=== PATIENT | female | born 1940 | race Caucasian/White ===

== ENCOUNTER 2018-05-23 06:59 | Emergency (ER) | payer MEDICARE, OTHER, SELFPAY ==
[2018-05-23 07:24] VITALS: BP 154/69; PULSE 88; RESP 13; TEMP 36.8; O2SAT 99
--- NOTE | 2018-05-23 08:17 | PC.NURSE ---
done by professional nursing tutor stevie gutierrez rn instructor stand by
--- NOTE | 2018-05-23 08:19 | ED.ABDPAIN ---
HPI - Abdominal Pain General Chief Complaint: Abdominal Pain Stated Complaint: STOMACH MAKING NOISES Time Seen by Provider: 05/23/18 08:06 Source: patient and family (daughter) Mode of arrival: ambulatory Limitations: no limitations History of Present Illness HPI narrative: This is a 77-year-old female who comes to the emergency department with complaint of intermittent abdominal pain. Patient states typically lower in the abdomen. Um it seems to come and go. About 2 weeks ago she was having lot issues with constipation. She was seen at urgent care and given MiraLax which she has been taking twice daily. She is no longer constipated and has been having regular bowel movements although they have been somewhat loose and she states they see maybe a little too loose. She has not had any black or bloody stools. She has not had any fevers. No nausea, no vomiting. She states that sometimes sort of a crampy feeling. This morning she was having discomfort about 5:00 a.m.. She also states she is having a lot of gurgling sounds. Related Data Home Medications Medication Instructions Recorded Confirmed cyclosporine [Restasis] 1 drp OPHTHALMIC (EYE) BID 05/23/18 05/23/18 dicyclomine 10 mg PO BID 05/23/18 05/23/18 diltiazem HCl [Cartia XT] 120 mg PO BID 05/23/18 05/23/18 hydrocortisone [Proctozone-HC] 1 applic TOPICAL 1-2XD PRN 05/23/18 05/23/18 losartan 25 mg PO DAILY 05/23/18 05/23/18 metoprolol tartrate 50 mg PO BID 05/23/18 05/23/18 omeprazole 20 mg PO Q OTHER DAY 05/23/18 05/23/18 polyethylene glycol 3350 17 g PO DIRECTED 05/23/18 05/23/18 triamterene-hydrochlorothiazid 1 cap PO QAM 05/23/18 05/23/18 Allergies Allergy/AdvReac Type Severity Reaction Status Date / Time From ENTEX LQ Allergy Unknown Uncoded 10/26/17 12:31 From SUDAFED 12 HOUR Allergy Unknown Uncoded 10/26/17 12:31 IODINE Allergy Unknown Uncoded 10/26/17 12:31 Review of Systems Review of Systems All systems reviewed & are unremarkable except as noted in HPI and below Constitutional Denies chills, Denies fever(s) and Denies malaise Cardiovascular Denies chest pain, Denies irregular heart rhythm, Denies lightheadedness, Denies palpitations, Denies dyspnea, Denies dyspnea on exertion and Denies orthopnea Respiratory Denies cough, Denies dyspnea, Denies dyspnea on exertion and Denies wheezing Gastrointestinal Gastrointestinal: Reports abdominal pain, Denies belching, Denies melena, Denies hematochezia, Denies change in bowel habits, Reports constipation (improved with meds), Denies fecal incontinence, Reports loose stools, Denies nausea and Denies vomiting Genitourinary Denies hematuria, Denies flank pain, Reports urinary incontinence (chronic no new change) and Denies urinary urgency Musculoskeletal Denies back pain Endocrine Denies palpitations Allergic/Immunologic Denies wheezing [facility] Medical History Coronary artery disease (Acute) Dyslipidemia (Acute) SVT (supraventricular tachycardia) (Acute) Surgical History History of (Acute) Exam Narrative Exam Narrative: GENERAL: Alert and oriented x three, well-nourished, well-appearing female in no acute distress. HEENT: Head normocephalic, atraumatic, EOMI, pupils reactive, face symmetric, moist mucous membranes NECK: Supple, full range of motion CARDIOVASCULAR: Regular rate and rhythm without murmurs, rubs or gallops. RESPIRATORY: Breath sounds equal bilaterally, no wheezes rales or rhonchi. ABDOMEN: Soft, very mild suprapubic tenderness. Normoactive bowel sounds all 4 quadrants. No guarding or rebound, rigidity, no mass : No CVA tenderness EXTREMITIES: Normal range of motion, no clubbing or edema. Neurovascularly intact NEUROLOGICAL: Cranial nerves II through XII grossly intact. Moving all extremities SKIN: Warm, dry, no petechiae, no rashes or lesions. Initial Vital Signs Initial Vital Signs: Vital Signs Temperature 98.2 F 05/23/18 07:24 Pulse Rate 88 05/23/18 07:24 Respiratory Rate 13 05/23/18 07:24 Blood Pressure 154/69 H 05/23/18 07:24 Pulse Oximetry 99 05/23/18 07:24 Course Orders Ordered: ED Orders 05/23/18 08:05 Complete Blood Count AUTO DIFF Stat Comprehensive Metabolic Panel Stat Lipase Stat 05/23/18 08:19 XR abdomen min 2V Stat Vital Signs - 8 hr 05/23/18 07:24 Temperature 98.2 F Pulse Rate 88 Respiratory Rate 13 Blood Pressure 154/69 H Pulse Oximetry 99 MDM - Abdominal Pain Lab Data Attestation: I reviewed the patient's lab results. Result diagrams: 05/23/18 08:05 05/23/18 08:05 Lab Results 05/23/18 05/23/18 Range/Units 08:05 08:05 WBC 5.1 (4.5-11.0) X10^3/uL RBC 4.18 (4.0-5.2) X10^6/uL Hgb 12.9 (12.0-16.0) g/dL Hct 37.8 (36-46) % MCV 90.4 (80-100) fL MCH 31.0 (26-34) PG MCHC 34.3 (30-36) % RDW 13.8 (11.6-14.8) % Plt Count 250 (150-400) X10^3/uL Neut % (Auto) 64.7 (50-75) % Lymph % (Auto) 23.1 L (25-40) % Wilcox % (Auto) 9.0 (3-14) % Eos % (Auto) 2.3 (2-4) % Baso % (Auto) 0.9 (0-2) % Neut # (Auto) 3300 (6010-5252) /uL Sodium 143 (137-145) mmol/L Potassium 3.8 (3.4-5.1) mmol/L Chloride 103 (98-107) mmol/L Carbon Dioxide 26 (22-32) mmol/L BUN 23 H (7-17) mg/dL Creatinine 0.70 (0.52-1.04) mg/dL Estimated GFR > 60.0 (>60) mL/min BUN/Creatinine Ratio 32.9 H (6-22) Glucose 125 H (80-110) mg/dL Calcium 10.7 H (8.4-10.2) mg/dL Total Bilirubin 0.5 (0.2-1.3) mg/dL AST 28 (14-36) IU/L ALT 13 (9-52) IU/L Alkaline Phosphatase 94 (38-126) U/L Total Protein 8.1 (6.3-8.2) g/dL Albumin 4.6 (3.5-5.0) g/dL Globulin 3.5 (1.7-4.1) g/dL Albumin/Globulin Ratio 1.3 (1.0-2.8) Lipase 62 (23-300) U/L Point of care testing: Urine Dip Bedside Urine Glucose Negative Bedside Urine Bilirubin - Negative Bedside Urine Ketone - Negative Urine Specific [place] 1.020 Bedside Urine Occult Blood - Negative Bedside Urine pH 6.5 Bedside Urine Protein - Negative Bedside Urine Urobilinogen - Negative Bedside Urine Nitrite - Negative Bedside Urine Leukocytes - Negative Esterase Imaging Data Abdominal x-ray: Radiologist's impression: [address] [address] XRay Report Signed Patient: Staci Mchugh PMR#: [id number] : 1941Acct:[id number] Age/Sex: 77 / FDate of Service: 05/23/18 Loc: ED Accession Number: [id number] Procedure: XR abdomen min 2V Ordering Provider: Batool Whitney D.O. PROCEDURE: XR ABDOMEN MIN 2V INDICATIONS: intermittent abd pain, on stool softeners, gurgling TECHNIQUE: 2 views of the abdomen were acquired. COMPARISON: None. FINDINGS: Surgical changes and devices: None. Bowel: No pneumoperitoneum. The bowel gas pattern is normal. Mild to moderate scattered stool. Soft tissues: No masses; visualized solid organ contours appear normal in size. No suspicious abdominal calcifications. Areas of calcification are noted within the left the lower pelvis. Bones: No suspicious bony abnormalities. IMPRESSION: 1. Bezh-em-fxvcayat stool. 2. Lower pelvic calcifications as above. They are indeterminate on this examination. They could represent large phleboliths, uterine fibroid and other etiologies cannot be excluded. No priors are available for comparison. Dictated by: Alexa Mckay M.D. on 05/23/2018 at 8:58 Approved by: Alexa Mckay M.D. on 05/23/2018 at 9:00 [facility] Narrative Medical decision making narrative: Patient is very mild tenderness to palpation in the suprapubic region. She is less descriptive her abdominal pain and her daughter. She was more concerned about the gurgling in her stomach. We discussed that her lab work does not show an elevated white count, there is no other major abnormalities. X-ray did show some calcifications that could be phleboliths versus fibroids or other calcified lesions in her abdomen. Urine does not show any signs of infection. We discussed having her follow up with her primary care physician for evaluation. Her daughter asked about prescribing her anxiety medications which I recommended she should get from her primary care physician. Discharge Plan Departure Patient Disposition: Home Clinical Impression: Abdominal pain Discharge Date/Time: 05/23/18 10:36 Interventions: ED Discharge Assessment Last Done: 05/23/18 10:35 Instructions: DI for Abdominal Pain-Adult Activity Restrictions/Additional Instructions: Follow-up with her primary care physician in the next 3-5 days for recheck. Call for an appointment today. Return to the emergency department for fevers, persistent vomiting, rapidly increasing abdominal pain, black or bloody stools, passing out, chest pain or shortness of breath or other new or concerning symptoms. Decrease your stool softener to once daily. Prescriptions: No Action triamterene-hydrochlorothiazid 37.5-25 mg capsule 1 cap PO QAM RF: 0 hydrocortisone [Proctozone-HC] 2.5 % cream with perineal applicator 1 applic Topical 1-2XD PRN (Reason: Hemorrhoids) RF: 0 losartan 25 mg tablet 25 mg PO DAILY RF: 0 metoprolol tartrate 50 mg tablet 50 mg PO BID RF: 0 omeprazole 20 mg capsule,delayed release(DR/EC) 20 mg PO Q OTHER DAY RF: 0 diltiazem HCl [Cartia XT] 120 mg capsule,extended release 24hr 120 mg PO BID RF: 0 polyethylene glycol 3350 17 gram/dose powder 17 g PO DIRECTED RF: 0 dicyclomine 10 mg capsule 10 mg PO BID RF: 0 cyclosporine [Restasis] 0.05 % dropperette 1 drp ophthalmic (eye) BID RF: 0
--- NOTE | 2018-05-23 08:22 | ED_ITS ---
HPI - Abdominal Pain General Chief Complaint: Abdominal Pain Stated Complaint: STOMACH MAKING NOISES Time Seen by Provider: 05/23/18 08:06 Source: patient and family (daughter) Mode of arrival: ambulatory Limitations: no limitations History of Present Illness HPI narrative: This is a 77-year-old female who comes to the emergency department with complaint of intermittent abdominal pain. Patient states typically lower in the abdomen. Um it seems to come and go. About 2 weeks ago she was having lot issues with constipation. She was seen at urgent care and given MiraLax which she has been taking twice daily. She is no longer constipated and has been having regular bowel movements although they have been somewhat loose and she states they see maybe a little too loose. She has not had any black or bloody stools. She has not had any fevers. No nausea, no vomiting. She states that sometimes sort of a crampy feeling. This morning she was having discomfort about 5:00 a.m.. She also states she is having a lot of gurgling sounds. Related Data Home Medications Medication Instructions Recorded Confirmed cyclosporine [Restasis] 1 drp OPHTHALMIC (EYE) BID 05/23/18 05/23/18 dicyclomine 10 mg PO BID 05/23/18 05/23/18 diltiazem HCl [Cartia XT] 120 mg PO BID 05/23/18 05/23/18 hydrocortisone [Proctozone-HC] 1 applic TOPICAL 1-2XD PRN 05/23/18 05/23/18 losartan 25 mg PO DAILY 05/23/18 05/23/18 metoprolol tartrate 50 mg PO BID 05/23/18 05/23/18 omeprazole 20 mg PO Q OTHER DAY 05/23/18 05/23/18 polyethylene glycol 3350 17 g PO DIRECTED 05/23/18 05/23/18 triamterene-hydrochlorothiazid 1 cap PO QAM 05/23/18 05/23/18 Allergies Allergy/AdvReac Type Severity Reaction Status Date / Time From ENTEX LQ Allergy Unknown Uncoded 10/26/17 12:31 From SUDAFED 12 HOUR Allergy Unknown Uncoded 10/26/17 12:31 IODINE Allergy Unknown Uncoded 10/26/17 12:31 Review of Systems Review of Systems All systems reviewed & are unremarkable except as noted in HPI and below Constitutional Denies chills, Denies fever(s) and Denies malaise Cardiovascular Denies chest pain, Denies irregular heart rhythm, Denies lightheadedness, Denies palpitations, Denies dyspnea, Denies dyspnea on exertion and Denies orthopnea Respiratory Denies cough, Denies dyspnea, Denies dyspnea on exertion and Denies wheezing Gastrointestinal Gastrointestinal: Reports abdominal pain, Denies belching, Denies melena, Denies hematochezia, Denies change in bowel habits, Reports constipation ( improved with meds), Denies fecal incontinence, Reports loose stools, Denies nausea and Denies vomiting Genitourinary Denies hematuria, Denies flank pain, Reports urinary incontinence (chronic no new change) and Denies urinary urgency Musculoskeletal Denies back pain Endocrine Denies palpitations Allergic/Immunologic Denies wheezing [facility] Medical History Coronary artery disease (Acute) Dyslipidemia (Acute) SVT (supraventricular tachycardia) (Acute) Surgical History History of (Acute) Exam Narrative Exam Narrative: GENERAL: Alert and oriented x three, well-nourished, well- appearing female in no acute distress. HEENT: Head normocephalic, atraumatic, EOMI, pupils reactive, face symmetric, moist mucous membranes NECK: Supple, full range of motion CARDIOVASCULAR: Regular rate and rhythm without murmurs, rubs or gallops. RESPIRATORY: Breath sounds equal bilaterally, no wheezes rales or rhonchi. ABDOMEN: Soft, very mild suprapubic tenderness. Normoactive bowel sounds all 4 quadrants. No guarding or rebound, rigidity, no mass : No CVA tenderness EXTREMITIES: Normal range of motion, no clubbing or edema. Neurovascularly intact NEUROLOGICAL: Cranial nerves II through XII grossly intact. Moving all extremities SKIN: Warm, dry, no petechiae, no rashes or lesions. Initial Vital Signs Initial Vital Signs: Vital Signs Temperature 98.2 F 05/23/18 07:24 Pulse Rate 88 05/23/18 07:24 Respiratory Rate 13 05/23/18 07:24 Blood Pressure 154/69 H 05/23/18 07:24 Pulse Oximetry 99 05/23/18 07:24 Course Orders Ordered: ED Orders 05/23/18 08:05 Complete Blood Count AUTO DIFF Stat Comprehensive Metabolic Panel Stat Lipase Stat 05/23/18 08:19 XR abdomen min 2V Stat Vital Signs - 8 hr 05/23/18 07:24 Temperature 98.2 F Pulse Rate 88 Respiratory Rate 13 Blood Pressure 154/69 H Pulse Oximetry 99 MDM - Abdominal Pain Lab Data Attestation: I reviewed the patient's lab results. Result diagrams: 05/23/18 08:05 05/23/18 08:05 Lab Results 05/23/18 05/23/18 Range/Units 08:05 08:05 WBC 5.1 (4.5-11.0) X10^3/uL RBC 4.18 (4.0-5.2) X10^6/uL Hgb 12.9 (12.0-16.0) g/dL Hct 37.8 (36-46) % MCV 90.4 (80-100) fL MCH 31.0 (26-34) PG MCHC 34.3 (30-36) % RDW 13.8 (11.6-14.8) % Plt Count 250 (150-400) X10^3/uL Neut % (Auto) 64.7 (50-75) % Lymph % (Auto) 23.1 L (25-40) % Rich % (Auto) 9.0 (3-14) % Eos % (Auto) 2.3 (2-4) % Baso % (Auto) 0.9 (0-2) % Neut # (Auto) 3300 (7675-3678) /uL Sodium 143 (137-145) mmol/L Potassium 3.8 (3.4-5.1) mmol/L Chloride 103 (98-107) mmol/L Carbon Dioxide 26 (22-32) mmol/L BUN 23 H (7-17) mg/dL Creatinine 0.70 (0.52-1.04) mg/dL Estimated GFR > 60.0 (>60) mL/min BUN/Creatinine Ratio 32.9 H (6-22) Glucose 125 H (80-110) mg/dL Calcium 10.7 H (8.4-10.2) mg/dL Total Bilirubin 0.5 (0.2-1.3) mg/dL AST 28 (14-36) IU/L ALT 13 (9-52) IU/L Alkaline Phosphatase 94 (38-126) U/L Total Protein 8.1 (6.3-8.2) g/dL Albumin 4.6 (3.5-5.0) g/dL Globulin 3.5 (1.7-4.1) g/dL Albumin/Globulin Ratio 1.3 (1.0-2.8) Lipase 62 (23-300) U/L Point of care testing: Urine Dip Bedside Urine Glucose Negative Bedside Urine Bilirubin - Negative Bedside Urine Ketone - Negative Urine Specific [place] 1.020 Bedside Urine Occult Blood - Negative Bedside Urine pH 6.5 Bedside Urine Protein - Negative Bedside Urine Urobilinogen - Negative Bedside Urine Nitrite - Negative Bedside Urine Leukocytes - Negative Esterase Imaging Data Abdominal x-ray: Radiologist's impression: [address] [address] XRay Report Signed Patient: Staci Mchugh PMR#: [id number] : 1941Acct:[id number] Age/Sex: 77 / FDate of Service: 05/23/18 Loc: ED Accession Number: [id number] Procedure: XR abdomen min 2V Ordering Provider: Batool Whitney D.O. PROCEDURE: XR ABDOMEN MIN 2V INDICATIONS: intermittent abd pain, on stool softeners, gurgling TECHNIQUE: 2 views of the abdomen were acquired. COMPARISON: None. FINDINGS: Surgical changes and devices: None. Bowel: No pneumoperitoneum. The bowel gas pattern is normal. Mild to moderate scattered stool. Soft tissues: No masses; visualized solid organ contours appear normal in size. No suspicious abdominal calcifications. Areas of calcification are noted within the left the lower pelvis. Bones: No suspicious bony abnormalities. IMPRESSION: 1. Gftk-mq-mqkcuzwi stool. 2. Lower pelvic calcifications as above. They are indeterminate on this examination. They could represent large phleboliths, uterine fibroid and other etiologies cannot be excluded. No priors are available for comparison. Dictated by: Alexa Mckya M.D. on 05/23/2018 at 8:58 Approved by: Alexa Mckay M.D. on 05/23/2018 at 9:00 [facility] Narrative Medical decision making narrative: Patient is very mild tenderness to palpation in the suprapubic region. She is less descriptive her abdominal pain and her daughter. She was more concerned about the gurgling in her stomach. We discussed that her lab work does not show an elevated white count, there is no other major abnormalities. X-ray did show some calcifications that could be phleboliths versus fibroids or other calcified lesions in her abdomen. Urine does not show any signs of infection. We discussed having her follow up with her primary care physician for evaluation. Her daughter asked about prescribing her anxiety medications which I recommended she should get from her primary care physician. Discharge Plan Departure Patient Disposition: Home Clinical Impression: Abdominal pain Discharge Date/Time: 05/23/18 10:36 Interventions: ED Discharge Assessment Last Done: 05/23/18 10:35 Instructions: DI for Abdominal Pain-Adult Activity Restrictions/Additional Instructions: Follow-up with her primary care physician in the next 3-5 days for recheck. Call for an appointment today. Return to the emergency department for fevers, persistent vomiting, rapidly increasing abdominal pain, black or bloody stools, passing out, chest pain or shortness of breath or other new or concerning symptoms. Decrease your stool softener to once daily. Prescriptions: No Action triamterene-hydrochlorothiazid 37.5-25 mg capsule 1 cap PO QAM RF: 0 hydrocortisone [Proctozone-HC] 2.5 % cream with perineal applicator 1 applic Topical 1-2XD PRN (Reason: Hemorrhoids) RF: 0 losartan 25 mg tablet 25 mg PO DAILY RF: 0 metoprolol tartrate 50 mg tablet 50 mg PO BID RF: 0 omeprazole 20 mg capsule,delayed release(DR/EC) 20 mg PO Q OTHER DAY RF: 0 diltiazem HCl [Cartia XT] 120 mg capsule,extended release 24hr 120 mg PO BID RF: 0 polyethylene glycol 3350 17 gram/dose powder 17 g PO DIRECTED RF: 0 dicyclomine 10 mg capsule 10 mg PO BID RF: 0 cyclosporine [Restasis] 0.05 % dropperette 1 drp ophthalmic (eye) BID RF: 0
[2018-05-23 08:25] LABS: Add Manual Diff / Slide Review NO; Basophils Percent Auto 0.9 % (0-2); Eosinophils Percent Auto 2.3 % (2-4); Hematocrit 37.8 % (36-46); Hemoglobin 12.9 g/dL (12.0-16.0); Lymphocytes Percent Auto 23.1 % (25-40); Mean Corpuscular HGB Conc 34.3 % (30-36); Mean Corpuscular Volume 90.4 fL (80-100); Neutrophils Absolute Auto 3300 /uL (3000-5900); Neutrophils Percent Auto 64.7 % (50-75); Platelet Count 250 X10^3/uL (150-400); Red Blood Cell Count 4.18 X10^6/uL (4.0-5.2); Red Cell Distribution Width 13.8 % (11.6-14.8); White Blood Cell Count 5.1 X10^3/uL (4.5-11.0)
[2018-05-23 08:32] LABS: Alanine Aminotransferase 13 IU/L (9-52); Albumin 4.6 g/dL (3.5-5.0); Albumin Globulin Ratio 1.3 (1.0-2.8); Alkaline Phosphatase 94 U/L (38-126); Aspartate Aminotransferase 28 IU/L (14-36); BUN Creatinine Ratio 32.9 (6-22); Bilirubin Total 0.5 mg/dL (0.2-1.3); Blood Urea Nitrogen 23 mg/dL (7-17); Calcium 10.7 mg/dL (8.4-10.2); Carbon Dioxide 26 mmol/L (22-32); Chloride 103 mmol/L (98-107); Estimated Glomerular Filt Rate > 60.0 mL/min (>60); Globulin 3.5 g/dL (1.7-4.1); Glucose 125 mg/dL (80-110); HEMOLYSIS < 15 (0-50); Lipase 62 U/L (23-300); Potassium 3.8 mmol/L (3.4-5.1); Sodium 143 mmol/L (137-145); Total Protein 8.1 g/dL (6.3-8.2)
== END 2018-05-23 10:36 | disposition home or self-care (01) ==
PROVIDERS: Emergency Provider Emergency Medicine; Family Provider Physician Assistant Medical; PCP Physician Assistant Medical
DX: R10.9 Unspecified abdominal pain (principal)
CPT/HCPCS: 74019; 80053; 81003; 83690; 85025; 99283; 99284

== ENCOUNTER → 2018-07-26 11:59 | Outpatient (CLI) | payer MEDICARE, OTHER, SELFPAY ==
--- NOTE | 2018-07-26 | DI.US.S_ITS ---
PROCEDURE: US PELVIC COMPLETE INDICATIONS: ABDOMINAL PAIN TECHNIQUE: Real-time scanning was performed of the pelvic organs, with image documentation. Additional endovaginal scanning was necessary due to incomplete visualization of the adnexal and endometrial structures by transabdominal scanning. COMPARISON: None. FINDINGS: Transabdominal scanning: Limited scanning through the kidneys shows no hydronephrosis. No pathologic free abdominal or pelvic fluid. Endovaginal scanning: Uterus: Uterus is normal in size at 4.7 x 2.4 x 4.5 cm. The endometrium measures 3.5 mm in combined thickness. There are 3 intramural fibroids, largest measuring 1.4 x 1.1 x 1.4 cm. Ovaries: Ovaries not visualized. No adnexal masses seen. IMPRESSION: 3 intramural fibroids with the largest measuring up to 1.4 cm. Dictated by: Jacques Kirby [facility] Interpreted: Ramesh Chatman MD on 07/26/2018 at 15:47 Approved by: Ramesh Chatman M.D. on 07/26/2018 at 18:28
== END ==
PROVIDERS: PCP Physician Assistant Medical; Visit Provider Physician Assistant Medical
DX: D25.1 Intramural leiomyoma of uterus (principal); R10.9 Unspecified abdominal pain
CPT/HCPCS: 76830; 76856

== ENCOUNTER 2021-01-19 12:49 | Emergency (ER) | payer MEDICARE, OTHER, SELFPAY ==
[2021-01-19 13:12] VITALS: BP 151/75; PULSE 70; RESP 16; TEMP 36.6; O2SAT 97; BMI 26.4
[2021-01-19 13:15] VITALS: PULSE 65; O2SAT 100
[2021-01-19 13:30] VITALS: PULSE 73; O2SAT 100
--- NOTE | 2021-01-19 13:47 | ED.GIBLEED ---
HPI - GI Bleed General Chief complaint: GI Bleed Stated complaint: STOMACH ISSUES, BLACK TARRY STOOL Time Seen by Provider: 01/19/21 13:22 History of Present Illness HPI Narrative: Patient is a 80-year-old female on aspirin who is presenting with black tarry stools for 3 days. She said she initially had a few episodes of black tarry stool and then she took Pepto-Bismol multiple times. She has had multiple episodes liquid black stool. No nausea or vomiting. She is not dizzy or lightheaded. She denies any chest pain or palpitations. She has had a colonoscopy a few years ago which did not show any abnormality. No prior history of GI bleeding. She is not on any anticoagulation. Related Data Home Medications Medication Instructions Recorded Confirmed cyclosporine 0.05 % eye drops in a 1 drp OPHTHALMIC (EYE) BID 05/23/18 05/23/18 dropperette dicyclomine 10 mg capsule 10 mg PO BID 05/23/18 05/23/18 diltiazem HCl 120 mg 120 mg PO BID 05/23/18 05/23/18 capsule,extended release 24 hr hydrocortisone 2.5 % topical cream 1 applic TOPICAL 1-2XD PRN 05/23/18 05/23/18 with perineal applicator losartan 25 mg tablet 25 mg PO DAILY 05/23/18 05/23/18 metoprolol tartrate 50 mg tablet 50 mg PO BID 05/23/18 05/23/18 omeprazole 20 mg capsule,delayed 20 mg PO Q OTHER DAY 05/23/18 05/23/18 release polyethylene glycol 3350 17 17 g PO DIRECTED 05/23/18 05/23/18 gram/dose oral powder triamterene 37.5 1 cap PO QAM 05/23/18 05/23/18 mg-hydrochlorothiazide 25 mg capsule Allergies Allergy/AdvReac Type Severity Reaction Status Date / Time guaifenesin [From Entex LQ] Allergy Unknown Verified 01/19/21 13:55 iodine Allergy Unknown Verified 01/19/21 13:55 phenylephrine [From Entex LQ] Allergy Unknown Verified 01/19/21 13:55 pseudoephedrine Allergy Unknown Verified 01/19/21 13:55 [From Sudafed] Review of Systems Review of Systems Narrative: GENERAL: Denies chills, fatigue, malaise, fever, sweats, travel HEENT: Denies sinus pain, ear pain, sore throat, difficulty swallowing, neck pain RESPIRATORY: Denies dyspnea, cough, wheezing, hemoptysis, sputum. CARDIOVASCULAR: Denies chest pain, palpitations, orthopnea, edema GASTROINTESTINAL: See HPI : Denies dysuria, frequency, incontinence, hematuria, urinary retention, flank pain. MUSCULOSKELETAL: Denies weakness, joint pain, or bony pain SKIN: No rash, no erythema, no pruritus NEUROLOGIC: Denies weakness, dizziness, headache, numbness, change in speech, confusion PSYCHIATRIC: No concerning psychosocial issues. 12 point review of systems is negative except for those stated above and HPI Patient History Medical History Coronary artery disease Dyslipidemia SVT (supraventricular tachycardia) Surgical History History of Exam Initial Vital Signs Initial Vital Signs: Vital Signs Temperature 97.8 F 01/19/21 13:12 Pulse Rate 70 01/19/21 13:12 Respiratory Rate 16 01/19/21 13:12 Blood Pressure 151/75 H 01/19/21 13:12 Pulse Oximetry 97 01/19/21 13:12 GENERAL: Alert well-appearing 80-year-old female and in no acute distress. HEENT: Head atraumatic,EOMI, pupils reactive, face symmetric, moist mucous membranes CARDIOVASCULAR: Regular rate and rhythm without murmurs, rubs or gallops. RESPIRATORY: Breath sounds equal bilaterally, no wheezes rales or rhonchi. ABDOMEN: Soft, nontender. Normoactive bowel sounds all 4 quadrants. No guarding or rebound. RECTAL: No stool on guaiac EXTREMITIES: Normal range of motion, no clubbing or edema. Neurovascularly intact NEUROLOGICAL: Alert and oriented x4.Normal gait and speech. SKIN: Warm, dry, no laceration, no petechiae, no rashes or lesions. Course Orders Ordered: ED Orders 01/19/21 10:34 Complete Blood Count AUTO DIFF Stat Comprehensive Metabolic Panel Stat Partial Thromboplastin Time Stat Prothrombin Time INR Stat Type and Screen Stat 01/19/21 13:15 EKG-12 Lead Stat Discontinued Medications Pantoprazole Sodium (Pantoprazole 40 Mg Vial) 40 mg IV NOW ONE Stop: 01/19/21 14:02 Last Admin: 01/19/21 14:35 Dose: 40 mg Documented by: VANDANA Vital Signs Vital signs: Vital Signs - 8 hr 01/19/21 13:12 01/19/21 13:15 01/19/21 13:30 Temperature 97.8 F Pulse Rate 70 65 73 Respiratory Rate 16 Blood Pressure 151/75 H Pulse Oximetry 97 100 100 01/19/21 14:00 01/19/21 15:29 Temperature Pulse Rate 65 80 Respiratory Rate 16 Blood Pressure Pulse Oximetry 100 98 MDM - GI Bleed Lab Data Result diagrams: 01/19/21 10:34 01/19/21 10:34 Labs: Lab Results 01/19/21 01/19/21 01/19/21 Range/Units 10:34 10:34 10:34 WBC 5.2 (4.5-11.0) X10^3/uL RBC 4.13 (4.0-5.2) X10^6/uL Hgb 12.7 (12.0-16.0) g/dL Hct 37.8 (36-46) % MCV 91.4 (80-100) fL MCH 30.7 (26-34) PG MCHC 33.6 (30-36) % RDW 14.1 (11.6-14.8) % Plt Count 236 (150-400) X10^3/uL Neut % (Auto) 67.9 (50-75) % Lymph % (Auto) 23.8 L (25-40) % Overton % (Auto) 6.4 (3-14) % Eos % (Auto) 1.0 L (2-4) % Baso % (Auto) 0.9 (0-2) % Neut # (Auto) 3500 (1795-7531) /uL Lymph # (Auto) 1200 (7845-7007) /uL Overton # (Auto) 300 (0-900) /uL Eos # (Auto) 100 (0-450) /uL Baso # (Auto) 0 (0-100) /uL PT 11.0 (10.1-12.7) SECONDS INR 1.0 (0.9-1.3) APTT 29 (26.4-36.2) SECONDS Sodium 138 (137-145) mmol/L Potassium 4.5 (3.4-5.1) mmol/L Chloride 108 H (98-107) mmol/L Carbon Dioxide 23 (22-32) mmol/L BUN 15 (7-17) mg/dL Creatinine 0.62 (0.52-1.04) mg/dL Estimated GFR > 60.0 (>60) mL/min BUN/Creatinine Ratio 24.2 H (6-22) Glucose 111 H (80-110) mg/dL Calcium 10.8 H (8.4-10.2) mg/dL Total Bilirubin 0.6 (0.2-1.3) mg/dL AST 37 H (14-36) IU/L ALT 12 (<35) IU/L Alkaline Phosphatase 80 (38-126) U/L Total Protein 8.0 (6.3-8.2) g/dL Albumin 4.5 (3.5-5.0) g/dL Globulin 3.5 (1.7-4.1) g/dL Albumin/Globulin Ratio 1.3 (1.0-2.8) Blood Type Antibody Screen 01/19/21 Range/Units 10:34 WBC (4.5-11.0) X10^3/uL RBC (4.0-5.2) X10^6/uL Hgb (12.0-16.0) g/dL Hct (36-46) % MCV (80-100) fL MCH (26-34) PG MCHC (30-36) % RDW (11.6-14.8) % Plt Count (150-400) X10^3/uL Neut % (Auto) (50-75) % Lymph % (Auto) (25-40) % Overton % (Auto) (3-14) % Eos % (Auto) (2-4) % Baso % (Auto) (0-2) % Neut # (Auto) (0013-3803) /uL Lymph # (Auto) (4673-5036) /uL Overton # (Auto) (0-900) /uL Eos # (Auto) (0-450) /uL Baso # (Auto) (0-100) /uL PT (10.1-12.7) SECONDS INR (0.9-1.3) APTT (26.4-36.2) SECONDS Sodium (137-145) mmol/L Potassium (3.4-5.1) mmol/L Chloride (98-107) mmol/L Carbon Dioxide (22-32) mmol/L BUN (7-17) mg/dL Creatinine (0.52-1.04) mg/dL Estimated GFR (>60) mL/min BUN/Creatinine Ratio (6-22) Glucose (80-110) mg/dL Calcium (8.4-10.2) mg/dL Total Bilirubin (0.2-1.3) mg/dL AST (14-36) IU/L ALT (<35) IU/L Alkaline Phosphatase (38-126) U/L Total Protein (6.3-8.2) g/dL Albumin (3.5-5.0) g/dL Globulin (1.7-4.1) g/dL Albumin/Globulin Ratio (1.0-2.8) Blood Type A Positive Antibody Screen Negative ECG Data Interpretation: Normal sinus rhythm rate 72 p.r. interval to 52 QRS [address] changes or T-wave inversions, similar to prior ekgs MDM Narrative Medical decision making narrative: Patient is hemodynamically stable with stable hemoglobin and hematocrit. She has gone to the restroom a couple times in the emergency department but none of it has been diarrhea. At this time recommend discharge home and return as needed. Unclear if the black stool is from Pepto-Bismol versus GI bleed however I doubt GI bleed based on blood work. Discharge Plan Departure Patient Disposition: Home Clinical Impression: Acute GI bleeding Instructions: DI for Rectal Bleeding Activity Restrictions/Additional Instructions: *You have been diagnosed with rectal bleeding *What to do: At this time blood work is overall stable. The black stool may or may not be caused from the Pepto-Bismol. Please stop taking Pepto-Bismol. Diarrhea should start to slow down *Continue to take medications as directed *Follow up with your primary care provider in 2-3 days *Return to ER if you should have dizziness, lightheadedness, passing out, bright red blood, persistent black stool or any new, worsening or concerning symptoms Prescriptions: No Action triamterene-hydrochlorothiazid 37.5-25 mg capsule 1 cap PO QAM RF: 0 hydrocortisone [Proctozone-HC] 2.5 % cream with perineal applicator 1 applic Topical 1-2XD PRN (Reason: Hemorrhoids) RF: 0 losartan 25 mg tablet 25 mg PO DAILY RF: 0 metoprolol tartrate 50 mg tablet 50 mg PO BID RF: 0 omeprazole 20 mg capsule,delayed release(DR/EC) 20 mg PO Q OTHER DAY RF: 0 diltiazem HCl [Cartia XT] 120 mg capsule,extended release 24hr 120 mg PO BID RF: 0 polyethylene glycol 3350 17 gram/dose powder 17 g PO DIRECTED RF: 0 dicyclomine 10 mg capsule 10 mg PO BID RF: 0 cyclosporine [Restasis] 0.05 % dropperette 1 drp ophthalmic (eye) BID RF: 0 Referrals: Varsha Keenan PA-C [Primary Care Provider] -
[2021-01-19 13:49] LABS: Add Manual Diff / Slide Review NO; Basophils Absolute Auto 0 /uL (0-100); Basophils Percent Auto 0.9 % (0-2); Eosinophils Absolute Auto 100 /uL (0-450); Hematocrit 37.8 % (36-46); Hemoglobin 12.7 g/dL (12.0-16.0); Lymphocytes Absolute Auto 1200 /uL (1100-4500); Lymphocytes Percent Auto 23.8 % (25-40); Mean Corpuscular HGB Conc 33.6 % (30-36); Mean Corpuscular Hemoglobin 30.7 PG (26-34); Mean Corpuscular Volume 91.4 fL (80-100); Monocytes Absolute Auto 300 /uL (0-900); Monocytes Percent Auto 6.4 % (3-14); Neutrophils Absolute Auto 3500 /uL (1500-7000); Neutrophils Percent Auto 67.9 % (50-75); Platelet Count 236 X10^3/uL (150-400); Red Blood Cell Count 4.13 X10^6/uL (4.0-5.2); Red Cell Distribution Width 14.1 % (11.6-14.8); White Blood Cell Count 5.2 X10^3/uL (4.5-11.0)
[2021-01-19 14:00] VITALS: PULSE 65; O2SAT 100
[2021-01-19 14:06] LABS: PTT Partial Thromboplastin Tim 29 SECONDS (26.4-36.2)
[2021-01-19 14:08] LABS: Alanine Aminotransferase 12 IU/L (<35); Albumin 4.5 g/dL (3.5-5.0); Albumin Globulin Ratio 1.3 (1.0-2.8); Alkaline Phosphatase 80 U/L (38-126); Aspartate Aminotransferase 37 IU/L (14-36); BUN Creatinine Ratio 24.2 (6-22); Bilirubin Total 0.6 mg/dL (0.2-1.3); Blood Urea Nitrogen 15 mg/dL (7-17); Calcium 10.8 mg/dL (8.4-10.2); Carbon Dioxide 23 mmol/L (22-32); Chloride 108 mmol/L (98-107); Estimated Glomerular Filt Rate > 60.0 mL/min (>60); Globulin 3.5 g/dL (1.7-4.1); Glucose 111 mg/dL (80-110); HEMOLYSIS 83 (0-50); Potassium 4.5 mmol/L (3.4-5.1); Sodium 138 mmol/L (137-145)
[2021-01-19] MEDS: PANTOPRAZOLE 40 MG VIAL IV (14:35)
[2021-01-19 15:29] VITALS: PULSE 80; RESP 16; O2SAT 98
== END 2021-01-19 15:31 | disposition home or self-care (01) ==
PROVIDERS: Emergency Provider Emergency Medicine; PCP Physician Assistant Medical
DX: K92.2 Gastrointestinal hemorrhage, unspecified (principal)
CPT/HCPCS: 36415; 80053; 85025; 85610; 85730; 86850; 86900; 86901; 93005; 96374; 99284; C9113

== ENCOUNTER → 2021-10-20 08:06 | Outpatient (CLI) | payer MEDICARE, OTHER, SELFPAY ==
[2021-10-20 10:23] LABS: Add Manual Diff / Slide Review NO; Basophils Absolute Auto 100 /uL (0-100); Basophils Percent Auto 1.1 % (0-2); Eosinophils Absolute Auto 200 /uL (0-450); Eosinophils Percent Auto 4.1 % (2-4); Hematocrit 33.1 % (36-46); Lymphocytes Absolute Auto 1500 /uL (1100-4500); Mean Corpuscular HGB Conc 33.3 % (30-36); Mean Corpuscular Hemoglobin 29.6 PG (26-34); Mean Corpuscular Volume 88.9 fL (80-100); Monocytes Absolute Auto 600 /uL (0-900); Monocytes Percent Auto 9.8 % (3-14); Neutrophils Absolute Auto 3600 /uL (1500-7000); Platelet Count 298 X10^3/uL (150-400); Red Blood Cell Count 3.72 X10^6/uL (4.0-5.2); Red Cell Distribution Width 14.7 % (11.6-14.8)
[2021-10-20 10:33] LABS: High Sensitivity CRP - Cardiac 2.7 mg/L (1.0-3.0)
[2021-10-20 10:49] LABS: Erythrocyte Sedimentation Rate 42 MM/HR (0-20)
== END ==
PROVIDERS: PCP Physician Assistant Medical; Referring Provider Ophthalmology; Visit Provider Ophthalmology
DX: M31.6 Other giant cell arteritis (principal)
CPT/HCPCS: 36415; 85025; 85651; 86140

== ENCOUNTER 2022-04-03 15:39 | Emergency (ER) | payer OTHER, MEDICARE, SELFPAY ==
[2022-04-03 15:53] VITALS: BP 170/74; PULSE 78; RESP 16; TEMP 36.9; O2SAT 97; BMI 26.7
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
[2022-04-03 18:08] VITALS: BP 160/74; PULSE 77; RESP 16; O2SAT 99
[2022-04-03] MEDS: ACETAMINOPHEN 325 MG TABLET 650 MG PO (18:08)
[2022-04-03] MEDS: TRAMADOL 50 MG PREPACK 1 BOTTLE MISC (18:08)
== END 2022-04-03 18:09 | disposition home or self-care (01) ==
PROVIDERS: Emergency Provider Emergency Medicine; PCP Physician Assistant Medical
DX: S20.213A Contusion of bilateral front wall of thorax, initial encounter (principal); V89.2XXA Person injured in unspecified motor-vehicle accident, traffic, initial encounter
CPT/HCPCS: 71045; 99284